=== PATIENT | male | born 1960 | race Two or more races ===

== ENCOUNTER 2016-12-22 10:38 | Day surgery (SDC) | payer OTHER ==
[~2016-12-22] VITALS: Ht 177.8 cm; Wt 75.7 kg
[2016-12-22] VITALS (11 sets, daily range): BP systolic 106–140; BP diastolic 68–90; PULSE 68–80; RESP 9–22; Ht 177.8 cm; Wt 75.7 kg
[~2016-12-22 10:38] MED LIST: CEFAZOLIN 2 GM/50 ML (PMX) 50 ML IVPB SCH; SOD CHLORIDE 0.9% 1,000 ML IV SCH
--- NOTE | 2016-12-22 13:14 | RADRPT ---
PROCEDURE: XR Chest. CLINICAL INDICATION: Preoperative chest TECHNIQUE: Chest AP portable. COMPARISON: No comparison available. FINDINGS: The mediastinal structures are unremarkable. The heart is normal in size and configuration. The pu lmonary vascularity is normal. The lung freeman are unremarkable. No consolidation is identified. The pleural spaces are unremarkable. The axial skeleton is unremarkable. IMPRESSION: No active intrathoracic disease. RPTAT: [facility] .Lee Morley MD, MD Date Time Electronically viewed and signed by .Lee Morley MD, on 12/22/2016 13:14 .B/
[2016-12-22] MEDS ORDERED: BUPIVACAINE 0.5% (SDV) 30 ML INJ ONE (14:09)
[2016-12-22] MEDS ORDERED: LIDOCAINE 2% (MDV) 20 ML INJ ONE (14:09)
[2016-12-22] MEDS ORDERED: MIDAZOLAM 1 MG/ML 2 ML INJ ONE (14:14)
[2016-12-22] MEDS ORDERED: FENTAnyl 50 MCG/ML VIAL ONE (14:14)
[2016-12-22] MEDS ORDERED: CEFAZOLIN 1 GM INJ ONE (14:37)
[2016-12-22] MEDS ORDERED: PROPOFOL 20 ML ONE (14:37)
[2016-12-22] MEDS ORDERED: LIDOCAINE 2% (SDV) 5 ML INJ ONE (14:37)
--- NOTE | 2016-12-22 14:46 | RADRPT ---
Vent Rate: 70 bpm RR Interval: 0 msec MI Interval: 132 msec QRS Duration: 78 msec QT Interval: 394 msec QTC Interval: 425 msec P-R-T [place]: 76 - -3 - 59 degrees Normal sinus rhythm with sinus arrhythmia Anterior infarct , age undetermined Abnormal ECG Electronically Signed By: Taz Martinez [id number]
[2016-12-22] MEDS ORDERED: morphine (1 MG/ML) 10ML SYRINGE IV PRN (15:00)
[2016-12-22] MEDS ORDERED: ACETAMINOPHEN/CODEINE #3 TAB PO ONE (15:00)
[2016-12-22] MEDS ORDERED: DIPHENHYDRAMINE 50 MG INJ IV PRN (15:00)
[2016-12-22] MEDS ORDERED: ONDANSETRON 4 MG INJ IV PRN (15:00)
[2016-12-22] MEDS ORDERED: FENTAnyl 50 MCG/ML VIAL IV PRN (15:00)
[2016-12-22] MEDS ORDERED: MEPERIDINE 25 MG INJ IV PRN (15:00)
--- NOTE | 2016-12-22 16:32 | OPR ---
DATE OF OPERATION: 12/22/2016 INDICATION: This is a 56-year-old male with a back mass. He requests surgical excision. The risks , alternatives, benefits, and personnel were discussed with the patient. The patient expressed unde rstanding and consented to the operation. PREOPERATIVE DIAGNOSIS: Back mass. POSTOPERATIVE DIAGNOSIS: Back mass. OPERATION PERFORMED: 1. Excision of back mass with an 8-cm size incision and 5 x 2-cm size mass. 2. Localized adjacent tissue transfer with the use of skin flaps. SURGEON: Poncho Montgomery MD SPECIMEN: Back mass. COMPLICATIONS: None. ANESTHESIA: MAC. DESCRIPTION OF PROCEDURE: The patient was taken to the OR and prepped and draped in the usual steri le fashion. A surgical timeout was performed. IV antibiotics were given. Local anesthesia was inf iltrated in and around the mass. Dissection cautery was used to excise the mass into the deeper tis sues. Due to the tissue defect, localized adjacent tissue transfer with the use of skin flaps was p erformed. Superior and inferior flaps were created, advanced and approximated with interrupted 2-0 Vicryl and closure was multilayer with 2-0 Vicryl and skin aleida. Dry dressings were applied. Dictated By: PONCHO VALLEJO/KAHLIL Conf#: [id number] DID#: [id number]
== END 2016-12-22 15:50 | disposition home or self-care (01) ==
LOC: SDS 10:38
PROVIDERS: ATTEND Surgery
DX: L72.0 Epidermal cyst (principal)
CPT/HCPCS: 14000; 71010; 93005; J0690; J2250; J3010; 88307

== ENCOUNTER 2018-08-26 09:17 | Day surgery (SDC) | END 2018-08-26 12:15 | disposition home or self-care (01) ==

== ENCOUNTER 2018-12-08 20:03 | Emergency (ER) | payer OTHER ==
[~2018-12-08] VITALS: Ht 172.7 cm; Wt 72.8 kg
[~2018-12-08 20:03] MED LIST changes: +ADVAIR; +BACTRIM; +CALCIUM; -CEFAZOLIN 2 GM/50 ML (PMX) 50 ML IVPB SCH; +GENVOYA; -SOD CHLORIDE 0.9% 1,000 ML IV SCH; +VENTOLIN; +VITAMIN D
[2018-12-08 20:06] VITALS: Ht 172.7 cm; Wt 72.8 kg
[2018-12-08] MEDS ORDERED: IPRATROPIUM (NEB) 0.5 MG/2.5 ML AMP NEB STA (23:10)
[2018-12-08] MEDS ORDERED: ALBUTEROL 0.083% (NEB) 2.5 MG/3 ML AMP NEB STA (23:10)
--- NOTE | 2018-12-09 01:22 | ERD ---
ER Documentation Chief Complaint Chief Complaint right foot pain/swelling x 1 week, denies trauma HPI Pt is a 58 year old HIV+ M with PMHx of eczema, asthma and COPD who presents to the ED with complaints of intermittent bilateral lower extremity swelling, right greater than left, over the past 1 week. He denies any trauma or recent falls. No recent immobilization or long flights. He states he walks a lot during the day which seems to exacerbates his symptoms. He denies any pain, only discomfort after walking for long periods of time. Denies fevers, chills, numbness, tingling or focal weakness of his lower extremities. Denies oliguria, frequency, urgency or any other urinary symptoms. He reports a hx of COPD and asthma and endorses feeling short of breath with chest tightness recently. He does not use his inhalers at home. Also reports itchiness and flare up of his eczema. Has been applying cortisone ointment without my relief. ROS All systems reviewed and are negative except as per history of present illness. Medications Home Meds Active Scripts Ipratropium [place]* (Atrovent HFA*) 12.9 Gm Aer.w.adap, 2 PUFF INHALATION Q4H for SHORTNESS OF BREATH, #1 INHALER Prov:DISHIGRIKIANMONROE N PA-C 12/09/18 Albuterol Sulfate* (Proair HFA*) 8.5 Gm Hfa.aer.ad, 2 PUFF INH Q4H PRN for WHEEZING AND SOB, #1 INHALER Prov:DISHIGRIKIANZEPYUR N PA-C 12/09/18 Reported Medications [Ventolin] No Conflict Check 08/26/18 [Advair] No Conflict Check 08/26/18 [Vitamin D] No Conflict Check 08/26/18 [Calcium] No Conflict Check 08/26/18 [Bactrim] No Conflict Check 08/26/18 [Genvoya] No Conflict Check 08/26/18 Allergies Allergies: Coded Allergies: No Known Allergy (Unverified , 12/21/16) PMhx/Soc History of Surgery: Yes (ORTHOSCOPY LEFT SHOULDER) Anesthesia Reaction: No Hx Neurological Disorder: No Hx Respiratory Disorders: Yes (ASTHMA, COPD) Hx Cardiac Disorders: No Hx Psychiatric Problems: No Hx Miscellaneous Medical Probl: No Hx Alcohol Use: Yes (DAILY) Hx Substance Use: Yes (MARIJUANA) Hx Tobacco Use: Yes Smoking Status: Current every day smoker Physical Exam Vitals Vital Signs Date Temp Pulse Resp B/P (MAP) Pulse Ox O2 O2 Flow FiO2 Time Delivery Rate 12/09/18 98.4 106 18 130/95 99 Room Air 02:28 (107) 12/08/18 85 18 95 21 23:51 12/08/18 97.7 103 18 133/69 97 20:06 (90) Physical Exam Const: No acute distress. Head: Atraumatic. + Face and scalp with fine white scaly patches mostly along nasolabial folds and hairline consistent with seborrheic dermatitis Eyes: Normal Conjunctiva ENT: Normal External Ears, Nose and Mouth. Neck: Full range of motion. No meningismus. Resp: + Course breath sounds throughout. Diffuse expiratory wheezing. No rhonchi or rales. Cardio: Regular rate and rhythm, no murmurs Abd: Soft, non tender, non distended. Normal bowel sounds Skin: + erythematous scaly patches and excoriations along upper extremities and trunk Ext: 1 + pitting edema to bilateral lower extremities. Decreased DP/PT pulses. Brawny discoloration to anterior lower legs, consistent with chronic venous stasis changes. No ulcers appreciated. No warmth. No calf tenderness. Negative Homans' sign Neur: Awake and alert Psych: Normal Mood and Affect Result Diagram: 12/08/18235612/08/182356 Results 24 hrs Laboratory Tests Test 12/08/18 23:57 White Blood Count 4.4 10^3/ul Red Blood Count 4.32 10^6/ul Hemoglobin 14.4 g/dl Hematocrit 42.9 % Mean Corpuscular Volume 99.3 fl Mean Corpuscular Hemoglobin 33.3 pg Mean Corpuscular Hemoglobin Concent 33.6 g/dl Red Cell Distribution Width 11.6 % Platelet Count 184 10^3/UL Mean Platelet Volume 9.1 fl Immature Granulocytes % 0.500 % Neutrophils % 45.0 % Lymphocytes % 32.9 % Monocytes % 15.4 % Eosinophils % 5.7 % Basophils % 0.5 % Nucleated Red Blood Cells % 0.0 /100WBC Immature Granulocytes # 0.020 10^3/ul Neutrophils # 2.0 10^3/ul Lymphocytes # 1.4 10^3/ul Monocytes # 0.7 10^3/ul Eosinophils # 0.3 10^3/ul Basophils # 0.0 10^3/ul Nucleated Red Blood Cells # 0.0 10^3/ul Sodium Level 142 mmol/L Potassium Level 4.2 mmol/L Chloride Level 103 mmol/L Carbon Dioxide Level 28 mmol/L Anion Gap 11 Blood Urea Nitrogen 14 mg/dl Creatinine 1.13 mg/dl Est Glomerular Filtrat Rate mL/min > 60 mL/min Glucose Level 86 mg/dl Calcium Level 9.4 mg/dl Total Bilirubin 0.2 mg/dl Direct Bilirubin 0.00 mg/dl Indirect Bilirubin 0.2 mg/dl Aspartate Amino Transf (AST/SGOT) 35 IU/L Alanine Aminotransferase (ALT/SGPT) 34 IU/L Alkaline Phosphatase 68 IU/L B-Type Natriuretic Peptide 59 PG/ML Total Protein 6.8 g/dl Albumin 3.9 g/dl Globulin 2.90 g/dl Albumin/Globulin Ratio 1.34 Current Medications Medications Dose Sig/Michael Start Time Status Last (Trade) Ordered Route PRN Stop Time Admin Dose Reason Admin Albuterol 2.5 mg ONCE STAT 12/08/18 DC 12/08/18 (Proventil NEB 23:10 23:50 0.083% (Neb)) 12/08/18 23:14 Ipratropium 0.5 mg ONCE STAT 12/08/18 DC 12/08/18 [place] NEB 23:10 23:50 (Atrovent 12/08/18 23:14 0.02% (Neb)) 25 mg ONCE ONCE 12/09/18 DC 12/09/18 Diphenhydrami PO 01:30 01:34 ne HCl 12/09/18 01:31 (Benadryl) Prednisone 40 mg ONCE ONCE 12/09/18 DC 12/09/18 (Prednisone) PO 01:30 01:34 12/09/18 01:31 Procedures/MDM EMERGENT LABS AND DIAGNOSTIC STUDIES: Lab Results above were reviewed and interpreted by me as below. CBC: no e/o of systemic infection or severe anemia CMP: no e/o severe acidosis, alkalosis, renal failure, diabetic ketoacidosis, liver disease BNP: < 100 Radiology Results as interpreted by Radiology: PROCEDURE: XR Chest, 1 View CLINICAL INDICATION: Shortness of breath. Exacerbation of asthma. TECHNIQUE: Frontal view of the chest. COMPARISON: 12/22/2016 FINDINGS: LUNGS: No consolidative pulmonary infiltrates noted. PLEURAL SPACE: Unremarkable. No pneumothorax. HEART: Unremarkable. No cardiomegaly. MEDIASTINUM: Unremarkable. BONES/JOINTS: Degenerative spine changes are noted. IMPRESSION: 1. No consolidative pulmonary infiltrates noted. 2. There is no significant interval change from the previous study. RPTAT: [facility] Roman Allen Physician Cloth Measurer Machine Date Time Electronically viewed and signed by Roman Allen Physician Cloth Measurer Machine on 12/09/2018 00:23 RmC/ CC: MONROE JOHNSON PA-C [id number] Nursing Notes Reviewed. Previous Medical Records requested via the Electronic Health Record. EMERGENCY DEPARTMENT COURSE / MEDICAL DECISION MAKING: Pt is a 58 year old HIV+ M with PMHx of asthma, COPD who presents to the ED with complaint of lower extremity edema x 1 week. Different diagnosis for this pt in cludes but is not limited to DVT/PE, CHF, renal failure, liver disease, venous insufficiency as well as many others. Workup including CBC, CMP and BNP is normal. CXR without any evidence of cardiomegaly. Pt is low risk for DVT and PE per Wells' criteria and PERC rule. History and physical most consistent for venous insufficiency. I recommended compression stocking, keeping feet elevated and following up with his regular doctor in 2 days for further evaluation. He was given a copy of his results. Pt was noted to have some wheezing on physical. Lungs sounds improved markedly after albuterol and atrovent breathing treatment. Lungs sounds were clear on repeat examination. No signs of hypoxia, impending respiratory failure or cardiocvascular compromise. No PNA, effusion or PTX on CXR. He was provided with a prescription for inhalers. Counseled on importance of smoking cessation as this is likely exacerbating his COPD/asthma. He was also given benadryl and prednisone with much improvement of his itchiness and rash. Recommended he continue with moisterization and steroid creams at home. No signs of secondary bacterial infection or deep space tissue infection. I recommended pt follow up with his regular doctor in 2 days for follow up as discussed, otherwise return to the ED for any new or worsening symptoms. Prior to discharge, patients vital signs have been reviewed SPECIALIST FOLLOW UP RECOMMENDED: None Smoking Cessation Therapy: Pt. was lectured for greater than 3 minutes on the health risks of continued smoking and the benefits of cessation. Patient's blood pressure was elevated (>120/80) but appears stable without evidence of hypertension emergency or urgency. The patient was counseled about the risks of hypertension and urged to pursue outpatient monitoring and therapy within a week with their primary care physician Departure Diagnosis: Primary Impression: Peripheral edema Additional Impressions: COPD exacerbation Eczema Eczema type: unspecified Qualified Codes: L30.9 - Dermatitis, unspecified HIV disease Condition: Stable Patient Instructions: Peripheral Edema, Bilateral, Copd Flare MONROE JOHNSON PA-C Dec 09, 2018 01:22
[2018-12-09] MEDS ORDERED: predniSONE 20 MG TAB PO ONE (01:30)
[2018-12-09] MEDS ORDERED: DIPHENHYDRAMINE 25 MG CAP PO ONE (01:30)
[2018-12-09] MEDS ORDERED: ATRO INHALATION (02:09)
[2018-12-09] MEDS ORDERED: ALBU8.5H8 INH (02:09)
[2018-12-09 02:28] VITALS: BP 130/95; PULSE 106; RESP 18
== END 2018-12-09 02:29 | disposition home or self-care (01) ==
LOC: FTE 20:03
DX: J44.1 Chronic obstructive pulmonary disease with (acute) exacerbation (principal); R60.9 Edema, unspecified; L30.9 Dermatitis, unspecified; B20 Human immunodeficiency virus [HIV] disease; J45.901 Unspecified asthma with (acute) exacerbation; F17.210 Nicotine dependence, cigarettes, uncomplicated
CPT/HCPCS: 36415; 71045; 80053; 83880; 85025; 94664; 99284; J7512